=== PATIENT | male | born 1990 | race African-American/Black ===

== ENCOUNTER 2020-08-15 11:31 | Emergency (ER) | payer OTHER ==
[~2020-08-15] VITALS: Ht 188 cm; Wt 84.0 kg
[2020-08-15 11:46] VITALS: BP 126/90
== END 2020-08-15 12:32 | disposition home or self-care (01) ==
LOC: ER 11:31
DX: M62.838 Other muscle spasm (principal); Z98.890 Other specified postprocedural states
CPT/HCPCS: 99281

== ENCOUNTER 2021-11-06 02:50 | Emergency (ER) | payer OTHER ==
[~2021-11-06] VITALS: Ht 188 cm; Wt 77.0 kg
[2021-11-06] MEDS ORDERED: TOPUD MT (04:21)
[2021-11-06] MEDS ORDERED: AMOX-424 MT (04:21)
[2021-11-06] MEDS ORDERED: IBUP-2029 MT (04:21)
[2021-11-06] MEDS ORDERED: IBUPROFEN 600MG TABLET PO ONE (05:00)
[2021-11-06] MEDS ORDERED: ACETAMINOPHEN 325MG TABLET PO ONE (05:00)
[2021-11-06 06:00] VITALS: BP 142/92
== END 2021-11-06 06:07 | disposition home or self-care (01) ==
LOC: ER 02:50
DX: S02.5XXA Fracture of tooth (traumatic), initial encounter for closed fracture (principal); X58.XXXA Exposure to other specified factors, initial encounter; Y93.89 Activity, other specified; Y92.89 Other specified places as the place of occurrence of the external cause; Y99.8 Other external cause status
CPT/HCPCS: 99283